=== PATIENT | female | born 1980 | race African-American/Black ===

== ENCOUNTER 2021-11-12 08:25 | Observation (INO) ==
[2021-11-12 09:36] LABS: Urine Appearance Cloudy (Clear); Urine Color Dark yellow (Yellow)
[2021-11-12 09:37] LABS: Bilirubin,Urine Moderate mg/dL (Negative); Blood, Urine Large mg/dL (Negative); Glucose,Urine (UA) Negative (Negative); Ketones,Urine Trace mg/dL (Negative); Nitrite,Urine Negative (Negative); Protein,Urine >=300 mg/dL (Negative); RBC,Urine TNTC /HPF (0-4); Squamous Epithelial Cell,Urine Moderate /HPF (0-10); Urine Specific Gravity 1.025 (1.001-1.035); Urine Urobilinogen 0.2 eU/dL (<2.0)
[2021-11-12 09:38] LABS: Bacteria,Urine 2+ /HPF (Few)
[2021-11-12 09:49] LABS: Basophils % 0.2 % (0.0-0.8); Eosinophils # 0.1 10*3/uL (0.0-0.87); Eosinophils % 0.8 % (0.00-10.9); Hematocrit 21.5 VOL% (35.7-47.0); Immature Granulocytes Absolute 0.51 #; Lymphocytes # 2.4 10*3/uL (1.4-4.0); Lymphocytes % 18.9 % (21.3-54.2); Mean Corpuscular HGB Conc 27.4 GM/DL (32-36); Mean Corpuscular Volume 57.8 FL (87-102); Mean Platelet Volume 8.9 FL (9.6-12.0); Monocytes # 0.9 10*3/uL (0.11-0.8); Monocytes % 6.7 % (1.7-12.7); Neutrophils % 69.4 % (38.7-73.9); Platelet Count 579 T/CUMM (130-400); Red Blood Count 3.72 MC/CUMM (3.8-5.5); Red Cell Distribution Width 22.6 % (9.3-17.3); White Blood Count 12.7 T/CUMM (4-12)
[2021-11-12 09:58] LABS: Hemoglobin 5.9 GM/DL (12.0-16.0)
[2021-11-12 10:05] LABS: Alanine Aminotransferase 20 U/L (13-56); Albumin 2.4 G/DL (3.4-5.0); Alkaline Phosphatase 80 U/L (45-117); Aspartate Amino Transferase 11 U/L (0-37); Bilirubin,Total < 0.39 MG/DL (0.20-1.00); Blood Urea Nitrogen 5 MG/DL (7-18); Calcium 8.8 MG/DL (8.5-10.1); Carbon Dioxide 26 MMOL/L (21-32); Chloride 103 MMOL/L (98-107); Glucose 119 MG/DL (74-106); Osmolality,Calculated 270.8 MOS/KG (273-304); Potassium 3.2 MMOL/L (3.5-5.1); Sodium 137 MMOL/L (136-145); Total Protein 9.1 G/DL (6.4-8.2)
[2021-11-12 10:17] LABS: Anisocytosis 1+; Hypochromia 2+; Microcytosis 1+; Polychromasia Slight; Target Cells Slight
[2021-11-12 10:18] LABS: Platelet Estimate Increased
[2021-11-12] MEDS ORDERED: medroxyPROGESTERone 10 MG TABLET PO STA (10:53)
[2021-11-12] MEDS ORDERED: SODIUM CHLORIDE 0.9% 1,000 ML IV PRN ×3 (10:54→12:47)
[2021-11-12] MEDS ORDERED: MAGNESIUM HYDROXIDE SUSP 30 ML UDCUP PO PRN (10:56)
[2021-11-12] MEDS ORDERED: BISACODYL 10 MG SUPP RECTAL PRN (10:56)
[2021-11-12] MEDS ORDERED: ONDANSETRON 4 MG/2 ML VIAL IV PRN (10:56)
[2021-11-12] MEDS ORDERED: LACTATED RINGERS 1,000 ML IV SCH (11:00)
[2021-11-12] MEDS: ACETAMINOPHEN 325 MG TABLET PO PRN (15:07)
[2021-11-12] MEDS ORDERED: ACETAMINOPHEN/CODEINE 300-30 MG TABLET PO ONE (17:30)
[2021-11-12] MEDS ORDERED: ACETAMINOPHEN 500 MG TABLET PO ONE (17:30)
[2021-11-13] MEDS: IBUPROFEN 800 MG TABLET PO PRN ×2 (01:27→09:28)
[2021-11-13 05:02] LABS: Basophils % 0.3 % (0.0-0.8); Eosinophils # 0.1 10*3/uL (0.0-0.87); Eosinophils % 1.1 % (0.00-10.9); Hematocrit 23.9 VOL% (35.7-47.0); Hemoglobin 7.1 GM/DL (12.0-16.0); Immature Granulocytes % 2.4 %; Immature Granulocytes Absolute 0.32 #; Lymphocytes # 1.9 10*3/uL (1.4-4.0); Lymphocytes % 14.5 % (21.3-54.2); Mean Corpuscular HGB Conc 29.7 GM/DL (32-36); Mean Corpuscular Volume 61.9 FL (87-102); Mean Platelet Volume 8.7 FL (9.6-12.0); Monocytes # 0.9 10*3/uL (0.11-0.8); Monocytes % 6.9 % (1.7-12.7); NRBC # 0.05 10*3/uL; Neutrophils % 74.8 % (38.7-73.9); Platelet Count 506 T/CUMM (130-400); Red Blood Count 3.86 MC/CUMM (3.8-5.5); Red Cell Distribution Width 27.7 % (9.3-17.3); White Blood Count 13.1 T/CUMM (4-12)
[2021-11-13] MEDS: DOCUSATE SODIUM 100 MG CAPSULE PO SCH ×2 (05:08→08:02)
[2021-11-13] MEDS: POTASSIUM CHLORIDE 20 MEQ TABLET PO PRN ×3 (05:08→09:27)
[2021-11-13 05:47] LABS: Hypochromia 2+; Microcytosis 2+; Polychromasia Slight; Target Cells Slight
[2021-11-13 05:48] LABS: Spherocytes Slight
[2021-11-13 07:08] VITALS: BP 122/60
[2021-11-13] MEDS: ACETAMINOPHEN 325 MG TABLET PO PRN (09:30)
== END 2021-11-13 11:45 | disposition home or self-care (01) ==
LOC: N.ED 08:25 → N.EDINP 08:25 → N.OB 12:15
PROVIDERS: ADMIT Obstetrics & Gynecology; ATTEND Obstetrics & Gynecology